=== PATIENT | male | born 1945 | race Caucasian/White ===

== ENCOUNTER 2018-01-23 06:48 | Observation (INO) | payer MEDICARE, OTHER ==
[2018-01-23] MEDS: TRANEXAMIC ACID 1,000 MG in NS 100 ML PRE-OP X1 IVPB (07:00)
[2018-01-23] MEDS: ACETAMINOPHEN 1000MG/100ML IV 100 ML IVPB (07:00)
[2018-01-23] MEDS: LACTATED RINGER'S 1,000 ML IV* (07:00)
[2018-01-23] MEDS: HIP PAIN COCKTAIL (CEFUROXIME) INJ ×2 (07:00→11:20)
[2018-01-23] MEDS: TRANEXAMIC ACID 1,000 MG in NS 100 ML INTRA-OP X1 IVPB (07:00)
[2018-01-23] MEDS: ONDANSETRON 4 MG INJ IV ×4 (08:01→21:21)
[2018-01-23] MEDS: LANSOPRAZOLE 30 MG CAP PO (08:02)
[2018-01-23] MEDS: DEXAMETHASONE 4 MG/ML 1 ML INJ IV (08:02)
[2018-01-23] MEDS: oxyCODONE (CR) 10 MG TAB [oxyCONTIN] PO (08:02)
[2018-01-23] MEDS ORDERED: oxyCODONE 5 MG TAB PO (10:00)
[2018-01-23] MEDS ORDERED: NA PHOSPHATE/BIPHOS 133 ML ENEMA PR (10:00)
[2018-01-23] MEDS ORDERED: MAGNESIUM HYDROXIDE 30ML CUP PO (10:00)
[2018-01-23] MEDS ORDERED: BISACODYL 10 MG SUPP PR (10:00)
[2018-01-23] MEDS ORDERED: NALOXONE (0.4 MG/ML) INJ IV (10:00)
[2018-01-23] MEDS ORDERED: SENNA/DOCUSATE NA (8.6MG/50MG) TAB PO (10:00)
[2018-01-23] MEDS ORDERED: BETHANECHOL 25 MG TAB PO (10:00)
[2018-01-23] MEDS ORDERED: DIPHENHYDRAMINE 50 MG INJ IV ×2 (10:00→10:30)
[2018-01-23] MEDS ORDERED: ALBUTEROL 0.083% (NEB) 2.5 MG/3 ML AMP HHN (10:30)
[2018-01-23] MEDS ORDERED: METOCLOPRAMIDE 10 MG INJ IV (10:30)
[2018-01-23] MEDS ORDERED: MEPERIDINE 25 MG INJ IV (10:30)
[2018-01-23] MEDS ORDERED: ONDANSETRON 4 MG INJ IV (10:30)
[2018-01-23] MEDS ORDERED: HYDROmorphONE 1 MG/5 ML IV SYRINGE IV ×3 (10:30)
[2018-01-23] MEDS ORDERED: FENTAnyl 50 MCG/ML VIAL IV ×2 (10:30)
[2018-01-23] MEDS ORDERED: morphine SULFATE/PF (10 MG/10 ML) INJ (10:31)
[2018-01-23] MEDS ORDERED: MIDAZOLAM 1 MG/ML 2 ML INJ (10:32)
[2018-01-23] MEDS: CEFAZOLIN 1 GM/50 ML (PMX) 50 ML IVPB ×3 (10:51→18:09)
[2018-01-23] MEDS: POLYMYXIN B 500000 UNIT INJ (11:20)
[2018-01-23] MEDS: BACITRACIN 50000 UNITS INJ (11:20)
[2018-01-23] MEDS ORDERED: PROPOFOL 20 ML (12:03)
[2018-01-23] MEDS ORDERED: SUCCINYLCHOLINE CHLORIDE 100 MG/5 ML SYG IV (12:03)
[2018-01-23] MEDS ORDERED: FENTAnyl 50 MCG/ML VIAL (12:03)
[2018-01-23] MEDS ORDERED: ROCURONIUM 50 MG INJ (12:03)
[2018-01-23] MEDS ORDERED: CEFAZOLIN 1 GM INJ (12:03)
[2018-01-23] MEDS ORDERED: SUGAMMADEX SODIUM 200 MG/2 ML VIAL IV (12:03)
[2018-01-23] MEDS ORDERED: LIDOCAINE 100 MG SYRINGE (12:03)
[2018-01-23] MEDS: DOCUSATE SODIUM 100 MG CAP PO (13:43)
[2018-01-23] MEDS: ASPIRIN 81 MG TAB PO ×2 (14:03→21:21)
[2018-01-23] MEDS: SOD CHLORIDE 0.9% 1,000 ML IV ×2 (15:23→21:28)
[2018-01-23] MEDS: oxyCODONE 5 MG TAB PO (18:10)
[2018-01-23] MEDS: GABAPENTIN 100 MG CAP PO (21:00)
[2018-01-24] MEDS: CEFAZOLIN 1 GM/50 ML (PMX) 50 ML IVPB (02:11)
[2018-01-24] MEDS: ONDANSETRON 4 MG INJ IV (03:11)
[2018-01-24 05:04] LABS: ADD MAN DIFF? NO
[2018-01-24 05:07] LABS: BASOPHILS % 0.2 % (0.0-2.0); EOSINOPHILS % 0.1 % (0.0-7.0); HEMATOCRIT 33.6 % (42.0-52.0); LYMPHOCYTES # 1.5 10^3/ul (0.8-2.9); LYMPHOCYTES % 16.9 % (15.0-51.0); MEAN CORPUSCULAR HEMOGLOBIN 30.6 pg (29.0-33.0); MEAN CORPUSCULAR HGB CONC 32.7 g/dl (32.0-37.0); MEAN CORPUSCULAR VOLUME 93.6 fl (82.0-101.0); MEAN PLATELET VOLUME 9.6 fl (7.4-10.4); MONOCYTE # 1.1 10^3/ul (0.3-0.9); MONOCYTES % 12.4 % (0.0-11.0); NEUTROPHIL # 6.1 10^3/ul (1.6-7.5); NEUTROPHILS % 69.9 % (39.0-77.0); PLATELET COUNT 132 10^3/UL (140-415); RED BLOOD COUNT 3.59 10^6/ul (4.70-6.10)
[2018-01-24 05:07] LABS: WHITE BLOOD COUNT 8.7 10^3/ul (4.8-10.8)
[2018-01-24] MEDS: SOD CHLORIDE 0.9% 1,000 ML IV (05:14)
[2018-01-24 05:22] LABS: HEMOGLOBIN A1C 5.5 % (0-5.9)
[2018-01-24 05:34] LABS: ANION GAP 8 (5-13); BLOOD UREA NITROGEN 23 mg/dl (7-20); CALCIUM 8.3 mg/dl (8.4-10.2); CARBON DIOXIDE 26 mmol/L (21-31); CHLORIDE 107 mmol/L (97-110); CREATININE 0.78 mg/dl (0.61-1.24); GLUCOSE 104 mg/dl (70-220); POTASSIUM 4.8 mmol/L (3.5-5.1); SODIUM 141 mmol/L (135-144)
[2018-01-24 05:42] LABS: CHOL/HDL RATIO 3.4 RATIO; HDL CHOLESTEROL 37 mg/dl (31-75); LDL CHOLESTEROL,CALCULATED 80 mg/dl; TRIGLYCERIDES 60 mg/dl (0-149)
[2018-01-24 05:42] LABS: CHOLESTEROL 129 mg/dl (100-200)
[2018-01-24 08:25] LABS: ADD UMIC NO; UR ASCORBIC ACID 20 mg/dL (NEGATIVE); UR BILIRUBIN (Dip) NEGATIVE (NEGATIVE); UR BLOOD (Dip) NEGATIVE (NEGATIVE); UR CLARITY CLEAR (CLEAR); UR COLOR YELLOW (YELLOW); UR GLUCOSE (Dip) NEGATIVE (NEGATIVE); UR KETONES (Dip) TRACE mg/dL (NEGATIVE); UR LEUKOCYTE ESTERASE (Dip) NEGATIVE Leu/ul (NEGATIVE); UR NITRITE (Dip) NEGATIVE (NEGATIVE); UR SPECIFIC GRAVITY (Dip) 1.033 (1.003-1.030); UR TOTAL PROTEIN (Dip) NEGATIVE (NEGATIVE); UR UROBILINOGEN (Dip) NEGATIVE (NEGATIVE)
[2018-01-24] MEDS: ATENOLOL 50 MG TAB PO (09:00)
[2018-01-24] MEDS: DOCUSATE SODIUM 100 MG CAP PO (09:04)
[2018-01-24] MEDS: ASPIRIN 81 MG TAB PO (09:04)
[2018-01-24] MEDS: GABAPENTIN 100 MG CAP PO (09:05)
[2018-01-24] MEDS: FERROUS FUMARATE (SR) TAB PO (09:05)
[2018-01-24] MEDS: CELECOXIB 200 MG CAP PO (09:05)
[2018-01-24] MEDS: oxyCODONE 5 MG TAB PO (13:46)
[2018-01-25] MEDS ORDERED: PANTOPRAZOLE (EC) 40 MG TAB PO (06:00)
== END 2018-01-24 17:30 | disposition home health service (06) ==
LOC: REC 06:48 → MS1 14:20
DX: M17.12 Unilateral primary osteoarthritis, left knee (principal); I10 Essential (primary) hypertension; Z23 Encounter for immunization
CPT/HCPCS: 27447; 73560; 80048; 80061; 81003; 83036; 85025; 87081; 87086; 88304; 88311; 90686; 97110; 97116; 97162; 97166; 97530; 99217